=== PATIENT | male | born 1980 | race Two or more races ===

== ENCOUNTER 2019-10-19 20:14 | Emergency (ER) | payer BC ==
[~2019-10-19] VITALS: Ht 182.9 cm; Wt 65.8 kg
[~2019-10-19 20:14] MED LIST: FINASTERIDE PO; ZOLP10TA2 PO
--- NOTE | 2019-10-19 20:34 | NUR ---
at bedside for MSE
--- NOTE | 2019-10-19 20:42 | NUR ---
Radiology noted in patients room atthis time to X-ray left knee
--- NOTE | 2019-10-19 20:52 | NUR ---
Patient discharged to home in stable condition. Able to ambulate withsteady gait. took all belongings. Written and verbal after care instructions given. Patient verbalizes understanding of instructions. Stressed follow up or return to ER for worsening s/s.
[2019-10-19 20:54] VITALS: BP 119/70
[2019-10-19] MEDS ORDERED: HYDROCODONE/APAP 10-325 MG TABLET PO ONE (21:00)
[2019-10-19] MEDS ORDERED: HYDROCODONE/APAP 10-325 MG TABLET ONE (21:04)
--- NOTE | 2019-10-19 21:05 | NUR ---
After patient was discharged, patient states he would like pain medication, MD ordered one time dose of pain medication and Provided Rx, patient states he will be picked up from ER
== END 2019-10-19 20:54 | disposition home or self-care (01) ==
LOC: ER 20:17
DX: S80.12XA Contusion of left lower leg, initial encounter (principal); W20.8XXA Other cause of strike by thrown, projected or falling object, initial encounter; Y93.73 Activity, racquet and hand sports; Y92.312 Tennis court as the place of occurrence of the external cause; Z88.0 Allergy status to penicillin
CPT/HCPCS: A4663